=== PATIENT | male | born 1970 ===

== ENCOUNTER 2023-03-11 20:51 | Emergency (ER) | payer SELFPAY ==
[2023-03-11] MEDS ORDERED: Sodium Chloride 0.9% 10 ML Syringe FLUSH PRN (21:10)
[2023-03-11] MEDS ORDERED: Sodium Chloride 0.9% 1,000 ML IV ONE ×3 (21:19→23:16)
[2023-03-11 21:35] LABS: HEMOGLOBIN 13.9 g/dL (14.0-18.0); MEAN CORPUSCULAR HEMOGLOBIN 29.5 pg (27.0-34.0); MEAN CORPUSCULAR HGB CONC 34.8 g/dL (33.0-35.0); MEAN CORPUSCULAR VOLUME 84.9 fL (80-100); PLATELET COUNT,PLT 517 10^3/uL (150-450); RED BLOOD CELL COUNT 4.71 10^6/uL (4.6-6.2); WHITE BLOOD CELL COUNT,WBC 11.1 10^3/uL (5.0-10.0)
[2023-03-11 21:38] LABS: BASOPHILS PERCENT AUTO 0.3 % (0.0-1.0); EOSINOPHILS PERCENT AUTO 0.2 % (1.0-3.0); LYMPHOCYTES PERCENT AUTO 9.6 % (20.5-50.1); MONOCYTES PERCENT AUTO 14.8 % (2-8); NEUTROPHILS PERCENT AUTO 75.1 % (42.2-75.2)
[2023-03-11] MEDS ORDERED: Iopamidol 612 MG/ML 100 ML Bottle IVPUSH ONE (21:50)
[2023-03-11 22:01] LABS: BAND PERCENT MAN 7 %; LYMPHOCYTES PERCENT MAN 14 % (20-50); MONOCYTES PERCENT MAN 13 % (2-8); SEG NEUTROPHILS PERCENT MAN 66 % (42-75)
[2023-03-11 22:03] LABS: ALBUMIN 2.2 g/dL (3.4-5.0); ANION GAP 13.6 mEq/L (7-13); BILIRUBIN TOTAL 0.7 mg/dL (0.2-1.0); BUN/CREATININE RATIO 13.8 (No establ ref range); CALCIUM 10.2 mg/dL (8.5-10.1); CREATININE 1.16 mg/dL (0.70-1.30); EST CRCL DRUG DOSING (CG) 55.13 mL/min; POTASSIUM,K 4.6 mmol/L (3.5-5.1); PROTEIN TOTAL,TP 7.2 g/dL (6.4-8.2)
[2023-03-11 22:05] LABS: A/G RATIO 0.44; C-REACTIVE PROTEIN 21.9 mg/dL (0.0-0.9); LACTIC ACID 2.3 mmol/L (0.4-2.0)
[2023-03-11] MEDS ORDERED: ceFAZolin 2 GM Vial IVPUSH ONE (22:13)
== END 2023-03-12 02:39 ==
LOC: DL.ED 20:51
DX: A41.9 Sepsis, unspecified organism (principal); L03.90 Cellulitis, unspecified; E11.65 Type 2 diabetes mellitus with hyperglycemia; E11.10 Type 2 diabetes mellitus with ketoacidosis without coma; E87.1 Hypo-osmolality and hyponatremia
CPT/HCPCS: 36415; 71260; 80053; 82009; 82947; 83605; 84145; 85025; 86140; 87040; 87077; 87186; 96361; 96365; 96375; 99284-25; 99285; J0690; J3370; J3490; J7030; J7050; Q9967